=== PATIENT | female | born 1990 | race Caucasian/White ===

== ENCOUNTER 2016-09-04 15:39 | Emergency (ER) | payer MEDICAID ==
[2012-08-15 18:33] VITALS: BMI 43.6
[2016-09-04 16:23] LABS: BASOPHILS 0.1 % (0.0-2.0); EOSINOPHILS 1.2 % (0-7); HEMOGLOBIN 10.7 g/dL (12-16); IMMATURE GRANULOCYTES 0.3 % (0-5); MCH 29.1 pg (26.0-34.0); MCHC 32.4 g/dL (31.0-37.0); MCV 89.7 fL (80.0-100.0); MEAN PLATELET VOLUME 9.9 fL (7.4-10.4); MONOCYTES 5.7 % (2-11); NEUTROPHILS 75.7 % (40-80); PLATELET COUNT 174 10x3/uL (130-400); RBC 3.68 10x6/uL (4.00-5.40); RDW 13.9 % (11.5-14.5); WBC 7.7 10x3/uL (4.8-10.8)
== END 2016-09-04 18:11 | disposition home or self-care (01) ==
LOC: D.ER 15:39
PROVIDERS: Emergency Medicine
DX: O26.893 Other specified pregnancy related conditions, third trimester (principal); Z3A.33 33 weeks gestation of pregnancy; S40.012A Contusion of left shoulder, initial encounter; X58.XXXA Exposure to other specified factors, initial encounter; Y93.89 Activity, other specified; Y92.410 Unspecified street and highway as the place of occurrence of the external cause; E11.9 Type 2 diabetes mellitus without complications; E78.5 Hyperlipidemia, unspecified

== ENCOUNTER → 2016-09-14 12:09 | Outpatient (CLI) | payer MEDICAID ==
[2012-08-15 18:33] VITALS: BMI 43.6
== END | disposition home or self-care (01) ==
LOC: D.LDO 12:09
DX: O24.919 Unspecified diabetes mellitus in pregnancy, unspecified trimester (principal)

== ENCOUNTER → 2016-09-18 11:36 | Outpatient (CLI) | payer MEDICAID ==
[~2016-09-18 11:36] MED LIST: GLUCOPHAGE1000 MG PO; HYDROCODON-ACE1 EAC7 PO; JANUVIA100 MG PO; LEVEMIR100 U/M1 SQ; NOVOLOG100 U/M1 SC; PRENATAL COMPLE1 TAB PO
== END | disposition home or self-care (01) ==
LOC: D.LDO 11:36
DX: O24.913 Unspecified diabetes mellitus in pregnancy, third trimester (principal); Z3A.33 33 weeks gestation of pregnancy

== ENCOUNTER → 2016-09-21 10:17 | Outpatient (CLI) | payer MEDICAID ==
[2012-08-15 18:33] VITALS: BMI 43.6
== END | disposition home or self-care (01) ==
LOC: D.LDO 10:17
DX: O24.913 Unspecified diabetes mellitus in pregnancy, third trimester (principal); Z3A.33 33 weeks gestation of pregnancy

== ENCOUNTER → 2016-09-25 10:10 | Outpatient (CLI) | payer MEDICAID ==
[2012-08-15 18:33] VITALS: BMI 43.6
== END | disposition home or self-care (01) ==
LOC: D.LDO 10:10
DX: O24.913 Unspecified diabetes mellitus in pregnancy, third trimester (principal); Z3A.34 34 weeks gestation of pregnancy

== ENCOUNTER → 2016-09-28 10:10 | Outpatient (CLI) | payer MEDICAID ==
[2012-08-15 18:33] VITALS: BMI 43.6
== END | disposition home or self-care (01) ==
LOC: D.LDO 10:10
DX: O24.913 Unspecified diabetes mellitus in pregnancy, third trimester (principal); Z3A.34 34 weeks gestation of pregnancy

== ENCOUNTER → 2016-10-02 10:30 | Outpatient (CLI) | payer MEDICAID ==
[2012-08-15 18:33] VITALS: BMI 43.6
== END | disposition home or self-care (01) ==
LOC: D.ER 10:30
DX: O24.913 Unspecified diabetes mellitus in pregnancy, third trimester (principal); Z3A.35 35 weeks gestation of pregnancy

== ENCOUNTER → 2016-10-04 10:54 | Outpatient (CLI) | payer MEDICAID ==
[2012-08-15 18:33] VITALS: BMI 43.6
== END | disposition home or self-care (01) ==
LOC: D.LDO 10:54
DX: O24.913 Unspecified diabetes mellitus in pregnancy, third trimester (principal); Z3A.35 35 weeks gestation of pregnancy

== ENCOUNTER → 2016-10-09 10:05 | Outpatient (CLI) | payer MEDICAID ==
[2012-08-15 18:33] VITALS: BMI 43.6
== END | disposition home or self-care (01) ==
LOC: D.ER 10:05 → D.LDO 10:05
DX: O24.913 Unspecified diabetes mellitus in pregnancy, third trimester (principal); Z3A.36 36 weeks gestation of pregnancy

== ENCOUNTER → 2016-10-16 10:18 | Outpatient (CLI) | payer MEDICAID ==
[2012-08-15 18:33] VITALS: BMI 43.6
== END | disposition home or self-care (01) ==
LOC: D.ER 10:18
DX: O36.8130 Decreased fetal movements, third trimester, not applicable or unspecified (principal); Z3A.37 37 weeks gestation of pregnancy; O24.913 Unspecified diabetes mellitus in pregnancy, third trimester

== ENCOUNTER → 2016-10-20 10:11 | Outpatient (CLI) | payer MEDICAID ==
[2012-08-15 18:33] VITALS: BMI 43.6
== END | disposition home or self-care (01) ==
LOC: D.LDO 10:11
DX: O24.419 Gestational diabetes mellitus in pregnancy, unspecified control (principal); Z3A.37 37 weeks gestation of pregnancy

== ENCOUNTER → 2016-10-23 10:37 | Outpatient (CLI) | payer MEDICAID ==
[2012-08-15 18:33] VITALS: BMI 43.6
[~2016-10-23 10:37] MED LIST changes: -GLUCOPHAGE1000 MG PO; -HYDROCODON-ACE1 EAC7 PO; -JANUVIA100 MG PO
[2016-10-25 18:32] VITALS: BMI 38.1
== END | disposition home or self-care (01) ==
LOC: D.LDO 10:37
DX: O24.913 Unspecified diabetes mellitus in pregnancy, third trimester (principal); Z3A.38 38 weeks gestation of pregnancy

== ENCOUNTER 2016-10-25 13:40 | Inpatient (IN) | payer MEDICAID ==
[2016-10-25] VITALS (11 sets, daily range): BP systolic 95–117; BP diastolic 53–78; Ht 167.6 cm; Wt 107.0 kg
[~2016-10-25] VITALS: Ht 167.6 cm; Wt 107.0 kg
--- NOTE | ~2016-10-25 | OP ---
PATIENT NAME: BHUPINDER FARR MEDICAL RECORD: [id number] :90 LOCATION:[facility] D.1214 ADMISSION DATE:10/25/16 SURGEON: MIKEY BRADY MD DATE OF OPERATION: 10/25/2016 PREOPERATIVE DIAGNOSES: 1. Term intrauterine at 38 weeks and 5 days. 2. Class B gestational diabetes. 3. tachycardia. POSTOPERATIVE DIAGNOSES: 1. Term intrauterine at 38 weeks and 5 days. 2. Class B gestational diabetes. 3. tachycardia. PROCEDURE: Repeat low transverse section. SURGEON: Mikey Brady MD ESTIMATED BLOOD LOSS: 1000 cc. INTRAVENOUS FLUIDS: Per anesthesia record. SPECIMENS: Placenta and cord for gases. FINDINGS: 1. Viable infant, Apgars 9 at one and 9 at five. 2. Placenta delivered manually intact, 3-vessel cord noted. 3. Grossly normal adnexa bilaterally. DESCRIPTION OF PROCEDURE: The patient was taken to the operating room where spinal anesthesia was achieved without difficulty. The patient was then prepped and draped in normal sterile fashion in the dorsal supine position. SCDs were on and functioning normally and a Clark catheter had been placed and was draining freely. Following prep, a repeat Pfannenstiel skin incision was made with a scalpel and extended downward to the underlying subcutaneous fat to level of the fascia. This was then carefully excised in the midline until the rectus muscles were identified and the incision extended bilaterally using the Pascual scissors. The superior and inferior aspects of the fascial incision were then grasped with Page clamps times 2, tented upward, and sharply dissected from the underlying rectus muscle using the Bovie cautery and the Pascual scissors. The rectus muscles, which appeared plicated from the previous surgery, were then dissected using the Metzenbaum scissors. The peritoneum was then entered sharply at the superior aspect of the incision using the Metzenbaum scissors. Following intraperitoneal placement, the peritoneal incision was extended bilaterally using the Metzenbaum scissors. A bladder blade was then placed into the pelvis. A bladder flap was then created. A low transverse incision was then made and the final layers of the uterus entered bluntly using a finger. The uterine incision was extended superiorly and inferiorly using the Pelosi method. The was found to be occiput posterior and with the head extended. A vacuum was then placed on the occiput and correction to head flexion was performed followed by delivery of the vertex. The vacuum was then removed and the was delivered atraumatically. Infant was bulb suctioned upon delivery. Cord was clamped times 2, cut, and the infant was handed to the awaiting nursery team. Cord was then obtained for gases. The placenta was then OPERATIVE REPORT [id number] BHUPINDER FARR removed manually intact. A 3-vessel cord was noted. The uterus was exteriorized, cleared of all clots and debris. Transection of the right uterine artery was noted. It was clamped with a ring forcep. An upward left fracture was noted, which was then grasped with a ring forcep as well. The uterine incision was repaired with 0 Vicryl times 2 in a running locked fashion with good hemostasis noted. Posterior cul-de-sac was then thoroughly irrigated and the uterus replaced into the pelvis. The anterior cul-de-sac was irrigated and the uterine incision was found to be hemostatic. Counts were correct times 2. The fascia was repaired with 0 loop PDS times 1 and the skin repaired with amara. The patient tolerated the procedure well, transferred to postanesthesia recovery stable without incident. TRANSINT:[id number] Voice Confirmation ID: [id number] DOCUMENT ID: [id number] MIKEY BRADY MD CC: [id number] DICTATION DATE: 10/25/162048 DIRECTOR WOMEN: 10/26/16 0147 ADM IN [facility] [address] [place] [address]
[2016-10-25 14:10] LABS: HEMATOCRIT 36.6 % (36.0-48.0); MCH 28.6 pg (26.0-34.0); MCHC 32.8 g/dL (31.0-37.0); MCV 87.1 fL (80.0-100.0); MEAN PLATELET VOLUME 10.3 fL (7.4-10.4); RBC 4.2 10x6/uL (4.00-5.40); RDW 14.5 % (11.5-14.5); WBC 7.9 10x3/uL (4.8-10.8)
[2016-10-25] MEDS ORDERED: LEVEMIR100 U/M1 SQ (14:56)
[2016-10-25] MEDS ORDERED: NOVOLOG100 U/M1 SC (14:56)
[2016-10-25] MEDS ORDERED: PRENATAL COMPLE1 TAB PO (14:57)
--- NOTE | 2016-10-25 16:56 | NUR ---
RECEIVED PT FROM VIA BED TO ROOM 1214. BED LOCKED AND PLACED IN LOW POSITION. VSS. PT AWAKE. AAO X 3. FUNDUS FIRM AT U/U. RUBRA LOCHIA SMALL AMT. NO CLOTS EXPRESSED ON FUNDAL MASSAGE. ABDOMINAL DRESSING DRY WITHOUT DRAINAGE. PT STATES BLE CONTINUE NUMB. SCDS ON BLE. PUMP ON. PIV OF LR WITH PITOCIN 20 UNITS AT 125 ML/HR. SITE CLEAR TO LEFT HAND. PT DENIES NEEDS OR C/O. SR UPX 2. CALL LIGHT IN REACH.
--- NOTE | 2016-10-25 17:09 | NUR ---
NO POST OP ORDERS NOTED. DR POWELL NOTIFIED. NEW ORDERS RECEIVED.
--- NOTE | 2016-10-25 17:25 | NUR ---
DILAUDID COMMUNITY DEVELOPMENT TECHNICIAN STARTED. PATIENT INSTRUCTED ON USE AND TO NOTIFY STAFF RAINA IF ANY NAUSEA, ITCHING OR RASH. COMMUNITY DEVELOPMENT TECHNICIAN BUTTON AND CALL GARRETT WITHIN REACH. NO SIGNS OF COMPLICATIONS AT IV SITE. VAZQUEZ. SCANT LOCHIA RUBRA. ABRAMS PATENT WITH KOSTAS URINE QS. DENIES NAUSEA. RESP REG AND EVEN. REMAINS STABLE. FAMILY AT BEDSIDE. SCD'S CONT. LOWER ABD DSG REMAINS CDI WITH ICE BAG TO COVER.
--- NOTE | 2016-10-25 18:00 | NUR ---
REPORTS PAIN DIMINISHED SINCE PULLEY MAN STARTED. DENIES NAUSEA. ICE CHIPS GIVEN WITH INSTRUCTIONS TO WAIT 20 MIN AFTER FIRST ICE CHIP TO SEE IF NAUSEA A PROBLEM AND TO NOTIFY STAFF RAINA IF IT IS. REMAINS STABLE WITH NO SIGNS OF RESP DISTRESS OR OTHER DISTRESS NOTED OR REPORTED. UOP REMAINS ADEQUATE.
--- NOTE | 2016-10-25 19:25 | NUR ---
ASSESSMENT PER FLOW SHEET, VS CONTINUE, IV IN LEFT HAND NOTED TO BE SLIGHTLY WET, TUBING TIGHTENED AT HUB, RESECURED WITH NEW TEGADERM AND TAPE, DILAUDID LUNCH COOK TO DELIVER 0.2MG/10MINS PER PT'S DEMAND FOR PAIN, PT RATES INC PAIN 06/20, FF, ML, U/U, MOD BLEEDING NOTED ON PINK PAD, PT CLEANED UP WITH WET WARM WASH CLOTHS, PINK PAD, BLUE CHUX, AND LEOPOLDO PAD CHANGED, BIKINI INC WITH PRIMAPORE DRESSING CLEAN, DRY AND INTACT, FRESH ICE PACK TO ABD, ABRAMS CATH INTACT, DRAINING DARK YELLOW URINE, PT ENC TO DRINK PLENTY OF FLUIDS, FRESH H20 AND DIET LEMON TRIBE SODA SERVED, PT DENIES FLATUS, SCD'S ON AND WORKING PROPERLY, PT REQUESTED OC, INFORMED PT THAT I WILL SEE IF I CAN FIND SOME SUGAR FREE FOR HER, PT VERBALIZES UNDERSTANDING, PT DENIES FURTHER NEEDS, TRASH EMPTIED
--- NOTE | 2016-10-25 19:55 | NUR ---
PT VISITING WITH FAMILY, SUGAR FREE OC BARILLAS
[2016-10-25 20:04] LABS: BASOPHILS 0.1 % (0-2); EOSINOPHILS 0.1 % (0-7); HEMATOCRIT 32.2 % (36.0-48.0); HEMOGLOBIN 10.6 g/dL (12-16); IMMATURE GRANULOCYTES 0.3 % (0-5); LYMPHOCYTES 7.3 % (15-50); MCH 28.5 pg (26.0-34.0); MCHC 32.9 g/dL (31.0-37.0); MCV 86.6 fL (80.0-100.0); MEAN PLATELET VOLUME 10.3 fL (7.4-10.4); MONOCYTES 3.2 % (2-11); PLATELET COUNT 188 10x3/uL (130-400); RBC 3.72 10x6/uL (4.00-5.40); RDW 14.3 % (11.5-14.5)
[2016-10-25 20:06] LABS: WBC 10.9 10x3/uL (4.8-10.8)
--- NOTE | 2016-10-25 20:30 | NUR ---
PT VISITING WITH FAMILY AND FRIENDS, DENIES NEEDS AT THIS TIME
--- NOTE | 2016-10-25 21:11 | NUR ---
DR POWELL IN ROOM AT THIS TIME, PT TALKING TO HIM, NEW BAG OF NS WITH PITOCIN HUNG INFUSING VIA PUMP AT 125 ML/HR, PT DENIES NEEDS AT THIS TIME
--- NOTE | 2016-10-25 22:00 | NUR ---
PT FILLING OUT NSY PAPER WORK, VS FINISHED, PT RATS INC PAIN 06/20, DENIES NEEDS AT THIS TIME
[2016-10-26] VITALS (7 sets, daily range): BP systolic 103–118; BP diastolic 51–64
--- NOTE | 2016-10-26 00:07 | NUR ---
PT AWAKE, FOB HOLDING BABY, VS OBTAINED, FRESH ICE PACK TO ABD, BLUE CHUX CHANGED, LITE BLEEDING NOTED WITH NO CLOTS, LEOPOLDO PAD PLACED, ABRAMS CATH EMPTIED, FSBS OBTAINED, SERVED FRESH H20 TO PT, ICE PROVIDED TO FOB, PT DENIES FURTHER NEEDS, BABY TO NSY VIA OPEN CRIB CART PER NSY NURSE
--- NOTE | 2016-10-26 00:45 | NUR ---
BEDDING PROVIDED TO FOB
--- NOTE | 2016-10-26 02:01 | NUR ---
PT AWAKE, DENIES NEEDS AT THIS TIME, FOB ASLEEP IN RECLINER
--- NOTE | 2016-10-26 03:52 | NUR ---
ROUNDS MADE. V/S ASSESSED. PT LYING IN BED, HOB 45 DEGREES. PT DENIES ANY PAIN OR NEEDS AT THIS TIME. WILL CONT. TO MONITOR.
--- NOTE | 2016-10-26 04:37 | NUR ---
PT AWAKE, FSBS 149, LEOPOLDO CARE DONE WITH WET WARM WASH CLOTHS, LITE BLEEDING NOTED WITH NO CLOTS, BLUE CHUX AND LEOPOLDO PAD CHANGED, ABRAMS CATH EMPTIED, PUMPS CLEARED, FRESH ICE PACK TO ABD, PT REQUESTED AIR TO BE ADJ, REQUESTED AND SERVED DIET COLA, DENIES FURTHER NEEDS, FOB AT BEDSIDE
--- NOTE | 2016-10-26 04:51 | NUR ---
NEW BAG OF NS WITH PITOCIN HUNG IV INFUSING VIA PUMP AT 125 ML/HR
[2016-10-26 05:34] LABS: BASOPHILS 0.1 % (0-2); EOSINOPHILS 0.6 % (0-7); HEMATOCRIT 27.7 % (36.0-48.0); HEMOGLOBIN 9.1 g/dL (12-16); IMMATURE GRANULOCYTES 0.2 % (0-5); MCH 28.1 pg (26.0-34.0); MCHC 32.9 g/dL (31.0-37.0); MCV 85.5 fL (80.0-100.0); MEAN PLATELET VOLUME 10.2 fL (7.4-10.4); MONOCYTES 5.7 % (2-11); NEUTROPHILS 79.4 % (40-80); PLATELET COUNT 172 10x3/uL (130-400); RBC 3.24 10x6/uL (4.00-5.40); RDW 14.3 % (11.5-14.5); WBC 9.4 10x3/uL (4.8-10.8)
[2016-10-26 06:15] LABS: RAPID PLASMA REAGIN Non Reactive (Non Reactive)
--- NOTE | 2016-10-26 06:15 | NUR ---
PT AWAKE, SNACK BOX PROVIDED, PT CONTINUES TO RATE INC PAIN 1/10, DENIES NEEDS, FOB IN ROOM
--- NOTE | 2016-10-26 07:00 | NUR ---
SHIFT REPORT TO DAY SHIFT
--- NOTE | 2016-10-26 07:30 | NUR ---
PT SITTING UP IN BED HOLDING . ASSESSMENT DONE. CLEAR LIQ DIET SERVED. DENIES NEEDS.
--- NOTE | 2016-10-26 08:10 | NUR ---
DR POWELL HERE TO SEE PT- NEW ORDERS RECEIVED.
--- NOTE | 2016-10-26 11:08 | NUR ---
IV CHANGED TO SALINE LOCK. FLUSHED WITH NS.
--- NOTE | 2016-10-26 11:14 | NUR ---
IV CHANGED TO SALINE LOCK. ABRAMS CATH REMOVED POST BULB DEFLATED WITH 850CC URINE IN BAG.
--- NOTE | 2016-10-26 12:30 | NUR ---
UP TO BATHROOM- VOIDED 500CC URINE. MOD LOCHIA UPON STANDING- NO CLOTS. SHOWER DONE AND LINENS CHANGED. PT UP AND ABOUT IN ROOM. NO REQUESTS.
--- NOTE | 2016-10-26 13:17 | NUR ---
AMBULATING IN HALLWAY WITH FAMILY.
--- NOTE | 2016-10-26 14:49 | NUR ---
UP AND ABOUT IN ROOM. TALKING WITH FAMILY.
--- NOTE | 2016-10-26 15:30 | NUR ---
DR POWELL IN UNIT- INFORMED OF 1530 BS- NO NEW ORDERS.
--- NOTE | 2016-10-26 15:40 | NUR ---
sitting up in bedside chair. requesting pain medication. co pain incision area. rates pain a 7 on scale of 0-10.
--- NOTE | 2016-10-26 16:15 | NUR ---
AMBULATING IN HALLWAY. REFUSES DULCOLAX SUPP AT THIS TIME.
--- NOTE | 2016-10-26 16:41 | NUR ---
AMBULATING IN HALLWAY WITH VISITORS. STATES WILL DRINK SOME WARM TEA.
--- NOTE | 2016-10-26 16:43 | NUR ---
SITTING UP IN BEDSIDE CHAIR. DENIES PAIN AT THIS TIME.
--- NOTE | 2016-10-26 19:38 | NUR ---
PM ROUNDS MADE, PT GETTING READY TO FEED BABY, FSBS 150, INFORMED PT THAT I WILL COME BACK WHEN SHE IS FINISHED FEEDING BABY AND DO ASSESSMENT, PT VERBALIZES UNDERSTANDING, PT DENIES NEEDS OR PAIN AT THIS TIME, FAMILY AT BEDSIDE, TRASH REMOVED
--- NOTE | 2016-10-26 20:05 | NUR ---
ASSESSMENT PER FLOW SHEET, VS OBTAINED, SALINELOCK IN LEFT HAND INTACT WITH NO REDNESS OR EDEMA, FF, ML, U/1, PT REPORTS LITE-MOD BLEEDING WITH A FEW STRINGY BLOOD CLOTS, BIKINI INC WITH RAYSHAWN CDI WITH NO DRAINAGE NOTED, SLIGHT BRUSING AROUND INC, LEOPOLDO PAD OVER INC FOR COMFORT AND MOISTURE CONTROL, PT REPORTS FLATUS, NO BM AND VOIDING BY SELF WITH NO DIFFICULTY, PT DENIES NEEDS OR PAIN AT THIS TIME
--- NOTE | 2016-10-26 21:18 | NUR ---
PT HOLDING BABY, RATES INC PAIN 2-08/18, REFUSES PAIN MED AT THIS TIME, TALKED TO PT AGAIN ABOUT PAIN MED AND NOT WAITING UNTIL IT REALLY HURTS, PT VERBALIZES UNDERSTANDING, WILL LET ME KNOW WHEN SHE IS READY FOR IT, REQUESTED AND SERVED FRESH H20, DENIES FURTHER NEEDS
--- NOTE | 2016-10-26 22:30 | NUR ---
PT HOLDING BABY, READY FOR PAIN MED, ADM NORCO PO AND FLUSHED SALINE LOCK PER MD ORDERS, SEE EMAR, PT DENIES FURTHER NEEDS
--- NOTE | 2016-10-26 23:29 | NUR ---
PT AWAKE, FOB FEEDING BABY, VS OBTAINED, PT DENIES NEEDS OR PAIN AT THIS TIME
--- NOTE | 2016-10-27 00:09 | NUR ---
FOB DUMPING MACHINE OPERATOR LIGHT, REQUESTED AND PROVIDED BLANKETS, PT HOLDING BABY, DENIES FURTHER NEEDS
--- NOTE | 2016-10-27 01:00 | NUR ---
SHIFT REPORT TO DAY SHIFT
--- NOTE | 2016-10-27 02:27 | NUR ---
PT RESTING QUIETLY AT THIS TIME WITH EYES CLOSED. RESPIRATIONS EVEN, NON-LABROED. NO ACUTE DISTRESS NOTED AT THIS TIME. BED LOW. PHONE AND CALL LIGHT IN REACH. SRX2.
[2016-10-27 03:27] VITALS: BP 107/64
--- NOTE | 2016-10-27 03:28 | NUR ---
PT AAOX3 WATCHING TV AT THIS TIME. VSS. PT REQUESTS MEDICATION FOR PAIN 10/18 AT THIS TIME. ADMINISTERED NORCO AND MOTRIN PO PER ORDERS AT THIS TIME. PT DENIES OTHER NEEDS. BED LOW. PHONE AND CALL LIGHT IN REACH. SRX2.
--- NOTE | 2016-10-27 04:27 | NUR ---
WENT TO REASSESS PTS PAIN AT THIS TIME. PT IS RESTING QUIETLY AT THIS TIME WITH EYES CLOSED. RESPIRATIONS EVEN, NON-LABORED. NO ACUTE DISTRESS NOTED AT THIS TIME. BED LOW. PHONE AND CALL LIGHT IN REACH. SRX2.
--- NOTE | 2016-10-27 05:17 | NUR ---
PT RESTING QUIETLY AT THIS TIME WITH EYES CLOSED. RESPIRATIONS EVEN, NON-LABORED. NO ACUTE DISTRESS NOTED AT THIS TIME. BED LOW. PHONE AND CALL LIGHT IN REACH. SRX2.
--- NOTE | 2016-10-27 05:48 | NUR ---
PT RESTING QUIETLY AT THIS TIME WITH EYES CLOSED. AROUSED EASILY. PT FSBS 87 AT THIS TIME. PT DENIES NEEDS. BED LOW. PHONE AND CALL LIGHT IN REACH. SRX2.
[2016-10-27 07:40] VITALS: BP 110/60
--- NOTE | 2016-10-27 07:40 | NUR ---
RECEIVED IN CHAIR. ALERT. HOLDING BABY. PLACED BABY IN CRIB FOR ASSESS. FUND MIDLINE. FIRM. ABD SOFT. +BS X4 QUAD. WANTING D/C TODAY. AMBULATES ABOUT ROOM WITHOUT DIFFICULTY. NOTED SIG OTHER ASLEEP IN BED.
--- NOTE | 2016-10-27 10:15 | NUR ---
RECEIVED SITTING IN BED STATES THAT SHE HAS DECIDED TO GO HOME AND ASKS THAT I CONVEY THAT CHOICE TO DR. GAMING. PROVIDED ICE WATER. BED IN LOWEST POSITION, S/R UP X 2, CALL LIGHT WITHIN REACH. WILL CONTINUE TO MONITOR.
--- NOTE | 2016-10-27 12:46 | NUR ---
PT UP WALKING IN ROOM. . DENIES ANY PROBLEMS
--- NOTE | 2016-10-27 15:01 | NUR ---
D/C INSTRUCTIONS GIVEN AND EXPLAINED TO PT. RX X2 GIVEN TO PT. COPIES IN CHART. INFO SHEETS GIVEN ABOUT MEDS. APPT MADE WITH DR POWELL FOR 11/01/16 AT 11:30 FOR STAPLE REMOVAL.
--- NOTE | 2016-10-27 15:30 | NUR ---
PT WAITING ON RIDE TO COME FOR HER WITH HER CAR SEAT FOR BABY
--- NOTE | 2016-10-27 16:05 | NUR ---
TO CAR VIA W/C. WITH BABY AND SIG OTHER.
== END 2016-10-27 16:05 | disposition home or self-care (01) | DRG 766 ==
LOC: D.WS 13:40 → D.LD 13:40 → D.WS 15:48
PROVIDERS: ADMIT Obstetrics & Gynecology
PROC: 10D00Z1 Extraction of Products of Conception, Low, Open Approach (ICD-10-PCS; principal; 2016-10-25 14:00)
DX: O24.429 Gestational diabetes mellitus in childbirth, unspecified control (principal); Z3A.38 38 weeks gestation of pregnancy; Z37.0 Single live birth; O76 Abnormality in fetal heart rate and rhythm complicating labor and delivery

== ENCOUNTER → 2017-02-08 09:08 | Outpatient (CLI) | payer MEDICAID ==
[2016-10-25 18:32] VITALS: BMI 38.1
== END | disposition home or self-care (01) ==
LOC: D.US 09:08
DX: R10.11 Right upper quadrant pain (principal)

== ENCOUNTER 2017-02-19 09:15 | Inpatient (IN) | payer MEDICAID ==
[~2017-02-19] VITALS: Ht 167.6 cm; Wt 92.5 kg
[2017-02-19 10:16] LABS: BASOPHILS 0.1 % (0-2); EOSINOPHILS 0.4 % (0-7); HEMATOCRIT 38.6 % (36.0-48.0); HEMOGLOBIN 12.4 g/dL (12-16); IMMATURE GRANULOCYTES 0.1 % (0-5); LYMPHOCYTES 9.4 % (15-50); MCHC 32.1 g/dL (31.0-37.0); MCV 84.1 fL (80.0-100.0); MEAN PLATELET VOLUME 10.2 fL (7.4-10.4); MONOCYTES 5.8 % (2-11); NEUTROPHILS 84.2 % (40-80); PLATELET COUNT 187 10x3/uL (130-400); RBC 4.59 10x6/uL (4.00-5.40); RDW 14.7 % (11.5-14.5); WBC 6.8 10x3/uL (4.8-10.8)
[2017-02-19 10:36] LABS: ALBUMIN 3.6 g/dL (3.4-5.0); ALKALINE PHOSPHATASE 120 U/L (46-116); ALT (SGPT) 150 U/L (10-68); CALC OSMOLALITY 286 mosm/kg (275-300); CALCIUM 9.2 mg/dL (8.5-10.1); CARBON DIOXIDE 26.3 mmol/L (21.0-32.0); CHLORIDE - SERUM 107 mmol/L (98-107); CREATININE - SERUM 0.7 mg/dL (0.6-1.3); GLUCOSE 145 mg/dL (74-106); POTASSIUM - SERUM 4.3 mmol/L (3.5-5.1); PROTEIN - SERUM 6.7 g/dL (6.4-8.2); SODIUM 141 mmol/L (136-145); UREA NITROGEN 20 mg/dL (7-18); eGFR NON AFRICAN AMERICAN > 90 mL/min (90-120)
[2017-02-19 10:36] LABS: APPEARANCE CLEAR (CLEAR); BILIRUBIN NEGATIVE (NEGATIVE); COLOR YELLOW (YELLOW); GLUCOSE NEGATIVE (NEGATIVE); KETONE NEGATIVE (NEGATIVE); LEUKOCYTE ESTERASE TRACE (NEGATIVE); NITRITE NEGATIVE (NEGATIVE); PROTEIN NEGATIVE (NEGATIVE); UROBILINOGEN NORMAL (NORMAL)
[2017-02-19 10:37] LABS: BACTERIA FEW /hpf (NONE SEEN); EPITHELIAL CELLS OCC /hpf (0-5); WHITE CELLS - URINE 0-5 /hpf (0-5)
[2017-02-19 10:47] LABS: LIPASE 5540 U/L (73-393)
[2017-02-19 10:49] LABS: AMYLASE - SERUM 366 U/L (25-115)
[2017-02-19 11:44] LABS: HCG SERUM NEGATIVE (NEGATIVE)
[2017-02-19] MEDS ORDERED: GLUCOPHAGE1000 MG PO (12:35)
[2017-02-19] MEDS ORDERED: JANUVIA100 MG PO (12:36)
--- NOTE | 2017-02-19 13:00 | NUR ---
RECEIVED TO FLOOR FROM ER, ORIENTED TO ROOM, DENIES NEEDS, BED LOWEST POSITION CALL LIGHT IN REACH, WILL CONTINUE TO MONITOR
[2017-02-19 13:49] VITALS: BP 106/55; Ht 167.6 cm; Wt 92.5 kg
--- NOTE | 2017-02-19 19:30 | NUR ---
RECIEVED SHIFT REPORT. PT IS LYING IN BED. ALERT AND ORIENTED AND ABLE TO VERBALIZE NEEDS. IV IS PATENT AND FLUIDS ARE RUNNING PER ORDER. PT IS AMBULATORY BUT WAS INSTRUCTED TO CALL FOR ANY ASSISTANCE NEEDED. PT DENIES ANY PAIN AT THIS TIME WITH CODING CLERKS SUPERVISOR PUMP. NO NEEDS ARE VERBALIZED AT THIS TIME. WILL CONTINUE TO MONITOR. SIDE RAILS ARE UP X 2. BED IS IN LOWEST POSITION. CALL LIGHT IS WITHIN REACH.
[2017-02-19 20:00] VITALS: BP 111/63
--- NOTE | 2017-02-19 20:33 | NUR ---
SHIFT ASSESSMENT COMPLETED. ANTIBIOTIC HUNG PER ORDER. PT RECIEVED NO INSULIN PER SLIDING SCALE FOR FSBS=79. NO NEEDS ARE VOICED. WILL MONITOR. SIDE RAILS X 2. BED LOW. CALL LIGHT IN REACH.
[2017-02-20] VITALS: BP 107/54
[2017-02-20 04:00] VITALS: BP 110/60
[2017-02-20 05:13] LABS: BASOPHILS 0.3 % (0-2); EOSINOPHILS 2.2 % (0-7); HEMATOCRIT 35.2 % (36.0-48.0); HEMOGLOBIN 11.3 g/dL (12-16); IMMATURE GRANULOCYTES 0.2 % (0-5); LYMPHOCYTES 17.8 % (15-50); MCHC 32.1 g/dL (31.0-37.0); MCV 84.2 fL (80.0-100.0); MEAN PLATELET VOLUME 10.7 fL (7.4-10.4); MONOCYTES 7.8 % (2-11); NEUTROPHILS 71.7 % (40-80); PLATELET COUNT 183 10x3/uL (130-400); RBC 4.18 10x6/uL (4.00-5.40); RDW 14.9 % (11.5-14.5); WBC 5.8 10x3/uL (4.8-10.8)
[2017-02-20 05:30] LABS: ALBUMIN 2.8 g/dL (3.4-5.0); ALKALINE PHOSPHATASE 112 U/L (46-116); ALT (SGPT) 264 U/L (10-68); AMYLASE - SERUM 176 U/L (25-115); BILIRUBIN - DIRECT 0.09 mg/dL (0.00-0.30); BILIRUBIN - INDIRECT 0.31 mg/dL (0.00-1.00); CALC OSMOLALITY 280 mosm/kg (275-300); CALCIUM 7.9 mg/dL (8.5-10.1); CARBON DIOXIDE 28.6 mmol/L (21.0-32.0); CHLORIDE - SERUM 106 mmol/L (98-107); CREATININE - SERUM 0.9 mg/dL (0.6-1.3); GLUCOSE 113 mg/dL (74-106); LIPASE 466 U/L (73-393); POTASSIUM - SERUM 3.3 mmol/L (3.5-5.1); PROTEIN - SERUM 5.7 g/dL (6.4-8.2); SODIUM 141 mmol/L (136-145); UREA NITROGEN 9 mg/dL (7-18); eGFR NON AFRICAN AMERICAN 80 mL/min (90-120)
--- NOTE | 2017-02-20 07:45 | NUR ---
ASSESSMENT PER FLOW SHEET.PT WITHOUT DISTRESS.CALL LIGHT IN REACH
[2017-02-20 08:21] VITALS: BP 153/72
[2017-02-20 11:58] VITALS: BP 118/74
--- NOTE | 2017-02-20 18:40 | NUR ---
TOLERATING FULL LIQUID DIET WITHOUT EMESIS.PT STATES SHE THINKS PAIN MED IS GIVING HER A HEADACHE AND FEELING SOME NAUSEA. SHE IS WITHOUT CHANGE FROM INITIAL SHIFT ASSESSMENT.CONT PLAN OF CARE
[2017-02-20 18:52] LABS: HCG SERUM NEGATIVE (NEGATIVE)
--- NOTE | 2017-02-20 19:35 | NUR ---
RECIEVED SHIFT REPORT. PT IS LYING IN BED. ALERT AND ORIENTED AND ABLE TO VERBALIZE NEEDS. IV IS PATENT AND FLUIDS ARE RUNNING PER ORDER. PT IS AMBULATORY BUT WAS INSTRUCTED TO CALL FOR ANY ASSISTANCE NEEDED. PT DENIES ANY PAIN AT THIS TIME WITH RADAR MECHANIC PUMP. NO NEEDS ARE VERBALIZED AT THIS TIME. WILL CONTINUE TO MONITOR. SIDE RAILS ARE UP X 2. BED IS IN LOWEST POSITION. CALL LIGHT IS WITHIN REACH.
[2017-02-20 20:00] VITALS: BP 121/64
--- NOTE | 2017-02-20 20:31 | NUR ---
SHIFT ASSESSMENT COMPLETED. ANTIBIOTIC HUNG PER ORDER. NO NEEDS VOICED. WILL MONITOR. SIDE RAILS X 2. BED LOW. CALL LIGHT IN REACH.
[2017-02-21 04:00] VITALS: BP 120/81
[2017-02-21 05:15] LABS: BASOPHILS 0.3 % (0-2); EOSINOPHILS 2.1 % (0-7); HEMATOCRIT 35.4 % (36.0-48.0); HEMOGLOBIN 11.4 g/dL (12-16); IMMATURE GRANULOCYTES 0.3 % (0-5); LYMPHOCYTES 21.9 % (15-50); MCHC 32.2 g/dL (31.0-37.0); MCV 83.9 fL (80.0-100.0); MEAN PLATELET VOLUME 10.6 fL (7.4-10.4); MONOCYTES 6.2 % (2-11); NEUTROPHILS 69.2 % (40-80); PLATELET COUNT 176 10x3/uL (130-400); RBC 4.22 10x6/uL (4.00-5.40); RDW 14.8 % (11.5-14.5); WBC 5.8 10x3/uL (4.8-10.8)
[2017-02-21 05:48] LABS: ALKALINE PHOSPHATASE 101 U/L (46-116); ALT (SGPT) 164 U/L (10-68); AMYLASE - SERUM 74 U/L (25-115); BILIRUBIN - DIRECT 0.06 mg/dL (0.00-0.30); BILIRUBIN - INDIRECT 0.24 mg/dL (0.00-1.00); CALC OSMOLALITY 277 mosm/kg (275-300); CALCIUM 8.6 mg/dL (8.5-10.1); CARBON DIOXIDE 24.5 mmol/L (21.0-32.0); CHLORIDE - SERUM 108 mmol/L (98-107); CREATININE - SERUM 0.6 mg/dL (0.6-1.3); GLUCOSE 116 mg/dL (74-106); LIPASE 188 U/L (73-393); POTASSIUM - SERUM 3.6 mmol/L (3.5-5.1); SODIUM 140 mmol/L (136-145); UREA NITROGEN 6 mg/dL (7-18); eGFR NON AFRICAN AMERICAN > 90 mL/min (90-120)
--- NOTE | 2017-02-21 07:45 | NUR ---
ASSESSMENT PER FLOW SHEET.PT REMAINS WITHOUT NAUSEA AND DENIES PAIN AT PRESENT.NPO FOR SURGERY TODAY.CALL LIGHT IN REACH
[2017-02-21 08:18] VITALS: BP 124/70
--- NOTE | 2017-02-21 10:34 | NUR ---
Patient Name: BHUPINDER FARR Admission Status: ER Accout number: [id number] Admission Date: 02-19-2017 : 1990 Admission Diagnosis: Attending: NOEL KEYS Current LOS: 2 Anticipated DC Date: Planned Disposition: Home Primary Insurance: [employer] Discharge Planning Comments: CM met with patient to assess discharge planning needs. Patient lives independently at home with her mother (Olivia) who will be the one to drive her home at time of discharge. She denies any HH or medical equipment needs at this time. CM will continue to follow and assist. PCP: Nay[facility] [address] [place] (Mother) [phone] Parts Analyst: Tamiko Estrada * Is the patient Alert and Oriented? Yes 0 * How many steps to enter\exit or inside your home? 0 0 * PCP NAYELI 0 * Pharmacy [facility] 0 * Preadmission Environment Home with Family 0 * ADLs Independent 0 * Equipment None 0 * List name and contact numbers for known caregivers / representatives who currently or will assist patient after discharge: OLIVIA LIM (MOTHER) 0 * Community resources currently utilized None 0 * Additional services required to return to the preadmission environment? No 0 * Can the patient safely return to the preadmission environment? Yes 0 * Has this patient been hospitalized within the prior 30 days at any hospital? No 0 Grand Total: 0
--- NOTE | 2017-02-21 10:43 | NUR ---
PRE MEDS ORDERED
--- NOTE | 2017-02-21 10:56 | NUR ---
FSBS 104 PER PT REQUEST. LEFT UNIT VIA BED
[2017-02-21] MEDS ORDERED: HYDROCODON-ACE1 EAC7 PO (12:47)
[2017-02-21 13:28] VITALS: BP 121/68
--- NOTE | 2017-02-21 13:34 | NUR ---
BACK FROM PACU VIA BED.ABD SITES X4 CLEAN DRY AND INTACT.MATTHEW GLEZ
--- NOTE | 2017-02-21 14:21 | NUR ---
ASSESSED PT SP02 CURRENTLY 97% ON RA.....
--- NOTE | 2017-02-21 14:55 | NUR ---
CALL FROM DAUGHTER. PASSWORD CONFIRMED.STATUS ON PT GIVEN TO FAMILY
--- NOTE | 2017-02-21 15:50 | NUR ---
TOLERATING FULL LIQUID DIET,WITHOUT EMESIS.STILL DENIES PAIN.LAP SITES X3 CDI. UMBILICAL SITE HAS SOME BLOODY DRAINAGE,VSS. PT HAS VOIDED 500CC OF URINE,IV DCD WITH CATH INTACT.DISCHARGE INSTRUCTIONS,STATES UNDERSTANDING.
--- NOTE | 2017-02-21 15:56 | NUR ---
LEFT UNIT VIA WHEELCHAIR.FAMILY AT SIDE.
--- NOTE | 2017-02-22 08:32 | OP ---
PATIENT NAME: BHUPINDER FARR MEDICAL RECORD: [id number] :90 LOCATION:[id number] ADMISSION DATE:02/19/17 SURGEON: NOEL KEYS MD DATE OF OPERATION: 02/21/2017 SURGEON: Noel Keys MD. PREOPERATIVE DIAGNOSIS: Gallstone pancreatitis. POSTOPERATIVE DIAGNOSIS: Gallstone pancreatitis. PROCEDURE PERFORMED: Laparoscopic cholecystectomy. ANESTHESIA: General. COMPLICATIONS: None. SPECIMENS: Gallbladder. Case is clean contaminated. ESTIMATED BLOOD LOSS: 20 cc. OPERATIVE COURSE: After consent was obtained, the patient was taken to the operating room and placed in supine position on the operating table. Next, general anesthesia was given via endotracheal intubation after a timeout was performed to confirm the correct patient and procedure. The abdomen was prepped and draped in typical sterile fashion. Local anesthetic was injected just above the umbilicus. A stab incision was made with an 11-blade scalpel. Using a 5-mm bladeless optical trocar, the abdomen was entered under direct laparoscopic vision. Adequate pneumoperitoneum was achieved. The abdominal cavity was inspected. No evidence of bowel injury. No evidence of bleeding. The patient was placed in the steep reverse Trendelenburg position. At this time, all remaining trocars were placed after the administration of local anesthetic, two 5-mm trocars in the right upper quadrant and 11-mm trocar in the subxiphoid position. The fundus of the gallbladder was grasped and retracted cephalad. The infundibulum was grasped and retracted laterally. The peritoneum was incised using electrocautery. Blunt dissection was then performed with a [place] dissector until the critical view was obtained; cystic duct lateral, cystic artery medial, liver in the posterior window. Three clips were placed in the proximal cystic duct, 1 clip distal and 2 clips were placed in the proximal cystic artery. The duct and artery were then transected with laparoscopic Metzenbaum scissors. The remaining portion of the gallbladder was then dissected off the liver bed using electrocautery. Once complete, it was grasped with the tenaculum and removed through the 11-mm trocar and sent for permanent pathology. The operative site was then copiously irrigated and suctioned. Careful attention was paid to hemostasis, which was obtained in the liver bed using electrocautery. The abdominal cavity was copiously irrigated and suctioned. The abdominal cavity was inspected. No evidence of bowel injury. No evidence of bleeding. There were [address] in the cystic duct, [address] in the cystic artery. At this time, all remaining instruments were removed. The abdomen was desufflated. Trocars were removed. Skin was closed with 4-0 Monocryl, Mastisol and Steri-Strips. At the end of the case, all needle and instrument counts were correct. No complications occurred. The patient was extubated and transferred to the PACU in stable condition. OPERATIVE REPORT [id number] BHUPINDER FARR TRANSINT:[id number] Voice Confirmation ID: [id number] DOCUMENT ID: [id number] NOEL KEYS MD at 0832 CC: [id number] DICTATION DATE: 02/21/17 1244 TRIAL JUDGE: 02/21/17 1758 DIS IN 02/21/17 [facility] [address] [place] [address]
== END 2017-02-21 15:56 | disposition home or self-care (01) | DRG 419 ==
LOC: D.ER 09:15 → D.MS 11:51
PROVIDERS: Emergency Medicine; ADMIT Surgery
PROC: 0FT44ZZ Resection of Gallbladder, Percutaneous Endoscopic Approach (ICD-10-PCS; principal; 2017-02-21 12:00)
DX: K85.10 Biliary acute pancreatitis without necrosis or infection (principal); E11.9 Type 2 diabetes mellitus without complications; Z79.4 Long term (current) use of insulin

== ENCOUNTER 2017-03-11 05:44 | Emergency (ER) | payer MEDICAID ==
[2017-02-19 13:49] VITALS: BMI 33.0
[~2017-03-11 05:44] MED LIST changes: +GLUCOPHAGE1000 MG PO; +HYDROCODON-ACE1 EAC7 PO; +JANUVIA100 MG PO
[2017-03-11 06:24] LABS: APPEARANCE CLEAR (CLEAR); BILIRUBIN NEGATIVE (NEGATIVE); COLOR YELLOW (YELLOW); GLUCOSE NEGATIVE (NEGATIVE); KETONE NEGATIVE (NEGATIVE); NITRITE NEGATIVE (NEGATIVE); PROTEIN NEGATIVE (NEGATIVE); SPECIFIC GRAVITY 1.025 (1.005-1.020); UROBILINOGEN NORMAL (NORMAL)
[2017-03-11 06:26] LABS: HCG URINE NEGATIVE (NEGATIVE)
[2017-03-11 07:12] LABS: BASOPHILS 0.1 % (0-2); EOSINOPHILS 0.9 % (0-7); HEMATOCRIT 36.9 % (36.0-48.0); IMMATURE GRANULOCYTES 0.1 % (0-5); LYMPHOCYTES 13.9 % (15-50); MCH 27.3 pg (26.0-34.0); MCHC 32.5 g/dL (31.0-37.0); MCV 83.9 fL (80.0-100.0); MEAN PLATELET VOLUME 10.4 fL (7.4-10.4); MONOCYTES 4.5 % (2-11); NEUTROPHILS 80.5 % (40-80); PLATELET COUNT 203 10x3/uL (130-400); WBC 8.8 10x3/uL (4.8-10.8)
[2017-03-11 07:26] LABS: ALBUMIN 3.4 g/dL (3.4-5.0); ALKALINE PHOSPHATASE 115 U/L (46-116); ALT (SGPT) 45 U/L (10-68); AMYLASE - SERUM 59 U/L (25-115); BILIRUBIN - TOTAL 0.81 mg/dL (0.2-1.3); CALC OSMOLALITY 279 mosm/kg (275-300); CALCIUM 9.3 mg/dL (8.5-10.1); CARBON DIOXIDE 28.5 mmol/L (21.0-32.0); CHLORIDE - SERUM 102 mmol/L (98-107); CREATININE - SERUM 0.7 mg/dL (0.6-1.3); GLUCOSE 129 mg/dL (74-106); LIPASE 129 U/L (73-393); POTASSIUM - SERUM 3.4 mmol/L (3.5-5.1); PROTEIN - SERUM 6.8 g/dL (6.4-8.2); SODIUM 139 mmol/L (136-145); UREA NITROGEN 13 mg/dL (7-18); eGFR NON AFRICAN AMERICAN > 90 mL/min (90-120)
== END 2017-03-11 08:04 | disposition home or self-care (01) ==
LOC: D.ER 05:44
PROVIDERS: Family Medicine
DX: K29.00 Acute gastritis without bleeding (principal)

== ENCOUNTER → 2019-07-04 09:44 | Outpatient (CLI) | payer SELFPAY ==
[2017-02-19 13:49] VITALS: BMI 33.0
[~2019-07-04 09:44] MED LIST changes: +NOVOLOG100 UNIT/1 SC; +TAMIFLU75 MG PO
[2019-07-04 17:54] LABS: APPEARANCE CLEAR (CLEAR); COLOR YELLOW (YELLOW); GLUCOSE NEGATIVE (NEGATIVE); NITRITE NEGATIVE (NEGATIVE); PROTEIN NEGATIVE (NEGATIVE)
[2019-07-04 17:59] LABS: BILIRUBIN NEGATIVE (NEGATIVE); KETONE LARGE mg/dL (NEGATIVE); UROBILINOGEN NORMAL (NORMAL)
== END | disposition home or self-care (01) ==
LOC: D.LDO 09:44
PROVIDERS: ATTEND Student in an Organized Health Care Education/Training Program
DX: O24.419 Gestational diabetes mellitus in pregnancy, unspecified control (principal)

== ENCOUNTER 2019-07-10 20:01 | Emergency (ER) | payer MEDICAID ==
[~2019-07-10] VITALS: Ht 167.6 cm; Wt 102.3 kg
[~2019-07-10 20:01] MED LIST changes: -NOVOLOG100 UNIT/1 SC; -TAMIFLU75 MG PO
[2019-07-10 20:11] VITALS: Ht 167.6 cm; Wt 102.3 kg
[2019-07-10] MEDS ORDERED: NOVOLOG100 UNIT/1 SC (20:13)
[2019-07-10] MEDS ORDERED: TAMIFLU75 MG PO ×3 (21:22→21:26)
[2019-07-10 21:35] VITALS: BP 115/66
== END 2019-07-10 21:35 | disposition home or self-care (01) ==
LOC: D.ER 20:01
DX: O26.893 Other specified pregnancy related conditions, third trimester (principal); Z3A.33 33 weeks gestation of pregnancy; J11.1 Influenza due to unidentified influenza virus with other respiratory manifestations; E11.9 Type 2 diabetes mellitus without complications; Z79.84 Long term (current) use of oral hypoglycemic drugs

== ENCOUNTER → 2019-07-31 12:18 | Outpatient (CLI) | payer MEDICAID ==
[2019-07-10 20:11] VITALS: BMI 36.4
[~2019-07-31 12:18] MED LIST changes: +LEVEMIR IN100 UNITS/ SC; +NOVOLOG100 UNIT/1 SC; +TAMIFLU75 MG PO
== END | disposition home or self-care (01) ==
LOC: D.LDO 12:18
PROVIDERS: ATTEND Student in an Organized Health Care Education/Training Program
DX: O36.8130 Decreased fetal movements, third trimester, not applicable or unspecified (principal); Z3A.36 36 weeks gestation of pregnancy

== ENCOUNTER 2019-08-05 10:31 | Inpatient (IN) | payer MEDICAID ==
[2019-08-05] VITALS (15 sets, daily range): BP systolic 111–150; BP diastolic 50–73; Ht 167.6 cm; Wt 105.2 kg
[~2019-08-05] VITALS: Ht 167.6 cm; Wt 105.2 kg
--- NOTE | ~2019-08-05 | OP ---
PATIENT NAME: BHUPINDER FARR MEDICAL RECORD: [id number] :90 LOCATION:[id number] ADMISSION DATE:08/05/19 SURGEON: SHIKHA ALMEIDA DO DATE OF OPERATION: 08/05/2019 PREOPERATIVE DIAGNOSIS: Nonreassuring heart tracing, antepartum testing. POSTOPERATIVE DIAGNOSIS: Nonreassuring heart tracing, antepartum testing. PRIMARY SURGEON: Shikha Almeida DO ANESTHESIA: General ET tube. PROCEDURE: Repeat low transverse section via Pfannenstiel incision. FINDINGS: Normal-appearing uterus, bilateral fallopian tubes, bilateral ovaries. Male infant, weight 8 pounds 10 ounces, Apgars 2, 7 and 9, normal appearing placenta, cord. SPECIMENS: Placenta and cord. ESTIMATED BLOOD LOSS: 900 cc. IV FLUIDS: 1500 cc. URINE OUTPUT: 60 cc clear urine. COMPLICATIONS: None. CONDITION: Stable. PROCEDURE: The risks, benefits, alternatives and indications of the procedure were discussed with the patient. She voices understanding of the procedure and signed the consent. She was taken to the OR where due to the emergent nature of the section, general anesthesia was administered and found to be adequate. She was placed in the dorsal supine position with a leftward tilt. The patient was prepped and draped in the normal sterile fashion prior to administration of anesthesia. General anesthesia was then administered and found to be adequate. Pfannenstiel skin incision was made with a scalpel and carried down to the underlying layer of the fascia. The fascia was incised in the midline and extended laterally. The fascia was bluntly dissected off the rectus muscle superiorly and inferiorly. The rectus muscle was in the midline down to the level peritoneum. The peritoneum was identified and noted to be free of adherent bowel and entered bluntly. The peritoneum was further with gentle traction. The bladder blade was inserted. The uterus was incised in a transverse fashion in the lower uterine segment. The incision was extended with cephalad caudad traction. The infant's head was brought to the incision. The delivered without difficulty. Mouth and nose were suctioned. Cord was clamped and cut and the infant was handed off to awaiting pediatricians. The placenta was manually removed. The uterus was exteriorized and a moist lap was used to assure complete removal of placental membranes, unclear whether placental abruption occurred. There was no blood inside the uterus; however, the placenta was removed fairly easily. Moist laparotomy sponges to assure complete removal of blood clot of placental membranes. The hysterotomy was closed with 0 Vicryl in a running locked fashion with good OPERATIVE REPORT [id number] BHUPINDER FARR hemostasis noted. The posterior cul-de-sac was irrigated with warm sterile saline and the uterus, tubes and ovaries were returned back to the abdominal cavity. A moist laparotomy sponge was used to assure complete removal of blood clots and fluid from the abdominal cavity. The hysterotomy was reinspected and noted to be hemostatic. The rectus muscle was closed with 2-0 Monocryl in a running fashion with good hemostasis. The fascial incision was closed with 0 Vicryl in a running fashion with good hemostasis. The skin was closed in a subcuticular fashion with 3-0 Monocryl and Dermabond covering. All needle, lap, sponge, and instrument counts were correct times 2. The patient tolerated the procedure well and she was awakened and taken to the recovery room in stable condition. TRANSINT:[id number] Voice Confirmation ID: [id number] DOCUMENT ID: [id number] SHIKHA ALMEIDA DO CC: [id number] DICTATION DATE: 08/05/19 1616 GIS DEVELOPER: 08/06/19 031 ADM IN [facility] [address] [place] [address]
[2019-08-05 11:02] LABS: HEMATOCRIT 39.4 % (36.0-48.0); HEMOGLOBIN 12.7 g/dL (12-16); MCH 27.6 pg (26.0-34.0); MCHC 32.2 g/dL (31.0-37.0); MCV 85.7 fL (80.0-100.0); MEAN PLATELET VOLUME 11.1 fL (7.4-10.4); RBC 4.6 10x6/uL (4.00-5.40); RDW 14.8 % (11.5-14.5); WBC 10.4 10x3/uL (4.8-10.8)
--- NOTE | 2019-08-05 12:00 | NUR ---
BABY BORN AT 1123
--- NOTE | 2019-08-05 13:01 | NUR ---
FUNDUS IS MIDLINE FIRM 2U. LEOPOLDO PAD IN PLACE. NO CLOTS PRESENTS. SCANT RUBRA LOCHIA NOTED ON PAD. WILL CONTINUE TO MONITOR.
--- NOTE | 2019-08-05 13:15 | NUR ---
REC'D BACK TO ROOM 1274 FROM PACU FOR CONTINUED PP CARE. AA&O X4. VSS. DENIES PAIN AT THIS TIME. VSS. ADMISSION ASSESSMENT COMPLETED AT THIS TIME PER FLOWSHEET. BREATH SOUNDS CLEAR AND EQUAL BILATERALLY, REGULAR AND UNLABORED, NO S/S OF DISTRESS NOTED. BOWEL SOUNDS PRESENT AND HYPOACTIVE X4. DRSG TO LOWER TRANSVERSE ABD INCISION NOTED WITH AREAS OF DRAINAGE MARKED. FUNDUS FIRM, MIDLINE AND U2 WITH SMALL AMT RUBRA LOCHIA, NO CLOTS NOTED. POC DISCUSSED WITH PT. PT STATES THAT SHE DOES NOT WANT IV PAIN MEDS AT THIS TIME AND WOULD RATHER HAVE PO, WILL NOTIFY DR. ALMEIDA. POSITIONED UP IN BED.. BED IN LOW POSITION WITH SRUP X2. CALL LIGHT AND PHONE WITHIN REACH.
--- NOTE | 2019-08-05 13:34 | NUR ---
VSS/ FUNUDUS REMAINS FIRM MIDLINE AND U2 WITH SCANT RUBRA LOCHIA, NO CLOTS NOTED. PAIN 2-3/10, DENIES NEED FOR INTERVENTION AT THIS TIME. INSTRUCTED ON INCENTIVE SPIROMETER USE WITH RETURN DEMONSTRATION NOTED X5. COUGH AND DEEP BREATHING DONE WITH GOOD EFFORT. BED IN LOW POSITION WITH SRUP X2. CALL LIGHT AND PHONE WITHIN REACH. RN REMAINS AT BEDSIDE TO PERFORM ADMISSION ASSESSMENT.
[2019-08-05] MEDS ORDERED: LEVEMIR FL100 UNIT/1 SC (13:37)
[2019-08-05] MEDS ORDERED: PRENAVITE1 TAB PO (13:38)
--- NOTE | 2019-08-05 13:47 | NUR ---
DR. GREEN TO BEDSIDE, DISCUSSING INFANTS POC AND PLANS FOR TRANSFER TO [facility] WITH PT AND FAMILY. ANSWERING QUESTIONS OF PT. PT TEARFUL AT THIS TIME. COOL WASH CLOTH PROVIDED. FAMILY MEMBERS AND FOB AT BEDSIDE, SUPPORTIVE AND ATTENTIVE TO PT.
--- NOTE | 2019-08-05 14:23 | NUR ---
SPOKE WITH DR. ALMEIDA REGARDING PT EXPRESSING THAT SHE REALLY DOESN'T WANT TO TAKE IV PAIN MEDS AT THIS TIME. ORDERS REC'D.
--- NOTE | 2019-08-05 14:45 | NUR ---
PT UPDATED ON NEW PAIN MED ORDERS REC'D, VERBALIZES UNDERSTANDING. STATES THAT SHE WOULD LIKE DYE WORKER AT THIS TIME "JUST IN CASE." MORPHINE DYE WORKER SET UP. PT INSTRUCTED ON USE AND VERBALIZES UNDERSTANDING. COUGH AND DEEP BREATHING DONE WITH GOOD EFFORT. INCENTIVE SPIROMETER DONE X5 WITH GOOD EFFORT. 250 MLS CLEAR LIGHT YELLOW URINE EMPTIED FROM ABRAMS. VSS. FUNDUS FIRIM, MIDLINE AND U2 WITH SMALL RUBRA LOCHIA, NO CLOTS NOTED. PERICARE DONE. TOWELS, CHUX, AND PERIPADS CHANGED. SPRITE PROVIDED PER PT REQUEST. DENIES ADDITIONAL NEEDS. BED IN LOW POSITION WITH SRUP X2. CALL LIGHT AND PHONE WITHIN REACH. WILL CONTINUE TO MONITOR.
--- NOTE | 2019-08-05 15:17 | NUR ---
ELLE CREW TO BEDSIDE WITH FOR PT TO SEE. PAIN REASSESSMENT COMPLETED, PAIN REMAINS 3/10, STATES THAT SHE HAS NOT USED CEO AND FOUNDER AND DENIES NEED FOR INTERVENTION.
--- NOTE | 2019-08-05 15:38 | NUR ---
ELLE CREW OUT OF ROOM WITH FOR TRANSPORT. VSS. FUNDUS REMAINS FIRM, MIDLINE AND U2 WITH SMALL RUBRA LOCHIA, NO CLOTS NOTED. DENIES NEEDS. CONVERSING WITH VISITORS. BED IN LOW POSITION WITH SRUP X2. CALL LIGHT AND PHONE WITHIN REACH. WILL CONTINUE TO MONITOR.
--- NOTE | 2019-08-05 16:58 | NUR ---
DR. ALMEIDA ON UNIT. ORDERS REC'D.
--- NOTE | 2019-08-05 18:38 | NUR ---
TORADOL GIVEN PER ORDER. C/O ABD AND INCISIONAL DISCOMFORT 12/18. CONTINUES TO STATE THAT SHE HAS NOT USED MONITOR TECH, STATES THAT SHE IS REALLY TRYING NOT USE MONITOR TECH D/T MORPHINE CAUSING A HEADACHE. STATES THAT SHE WANTS TO TRY TORADOL FIRST AND IF IT DOES NOT WORK SHE WOULD LIKE TO TRY PO MEDS INSTEAD OF IV PAIN MEDS. VSS. FUNDUS REMAINS FIRM, MIDLINE AND U2 WITH SMALL AMT RUBRA LOCHIA, NO CLOTS NOTED. PERICARE DONE, PERIPADS, TOWELS, AND CHUX CHANGE. ABRAMS CARE DONE, 300 MLS CLEAR LIGHT YELLOW URINE EMPTIED FROM ABRAMS. INCENTIVE SPIROMETER DONE X5, COUGH AND DEEP BREATHING DONE WITH GOOD EFFORT. DRSG REMAINS CLEAN DRY AND INTACT. NEW ICE PACK PROVIDED. NO NEW AREAS OF DRAINAGE NOTED TO LOWER TRANSVERSE ABD DRSG. BED IN LOW POSITION WITH SRUP X2. CALL LIGHT AND PHONE WITHIN REACH. LIGHTS OFF PER PT REQUEST.
--- NOTE | 2019-08-05 20:00 | NUR ---
PATIENT LYING IN BED WITH HOB UP 45 DEGREES, IV PATIENT IN LEFT WRIST, INFUSING PITOCIN AT 125/HR [employer] MORPHINE AVAILABLE BUT PATIENT STATES IT GIVES HER HEADACHES SO HAS NOT USED. 2ND IV ACCESS SALINE LOCK IN RIGHT WRIST. ABRAMS TO BEDSIDE DRAINING CLEAR YELLOW URINE. SCD'S ON, LTV ABDOMINAL PRESSURE DRESSING ON NO NEW DRAINAGE NOTED. FUNDUS FIRM, ML,AT U, LOCHIA SMALL RUBRA, LEOPOLDO CARE COMPLETED
--- NOTE | 2019-08-05 20:50 | NUR ---
PO PERCOCET GIVEN FOR PAIN, PATIENT NOT USING MORPHINE JIG MAKER STATES MORPHINE GIVES HER HEADACHES
--- NOTE | 2019-08-05 22:10 | NUR ---
TOLERATING FLUIDS WELL, CHICKEN BROTH GIVEN, DR ALMEIDA STATED COULD ADVANCE DIET TOLERATED.
--- NOTE | 2019-08-05 23:20 | NUR ---
PEANUT BUTTER AND AHMET CRACKERS GIVEN FOR SNACK, TOLERATING WELL
--- NOTE | 2019-08-06 00:15 | NUR ---
ABRAMS DISCONTINUED, EMPTIEN 450 ML CLEAR YELLOW URINE, LEOPOLDO CARE, IV SALINE LOCKED, NO REDNESS, NO TENDERNESS NOTED, PATIENT UP AND AMBULATED IN ROOM. UP TO CHAIR, TOLERATED WELL
--- NOTE | 2019-08-06 00:50 | NUR ---
UP TO BATHROOM, VOIDED 300 ML LEOPOLDO CARE, AND RETURNED TO BED WITH SCD'S ON, CALL LIGHT IN REACH, SR UP X2 AND FAMILY MEMBER IS AT BEDSIDE
--- NOTE | 2019-08-06 00:56 | NUR ---
PERCOCET 10MG TAB PO FOR C/O INCISIONAL PAIN NOT RELEAVED BY TORADOL
--- NOTE | 2019-08-06 02:00 | NUR ---
RESTING WITH EYES CLOSED, SR UP X 2 CALL LIGHT IN REACH
--- NOTE | 2019-08-06 03:03 | NUR ---
SLEEPING, FAMILY AT BEDSIDE, CALL LIGHT IN REACH SR UP X2
[2019-08-06 04:13] VITALS: BP 104/55
--- NOTE | 2019-08-06 04:15 | NUR ---
VS STABLE, DENIES NEEDS, COMFORTABLE AND DENIES NEED FOR MEDICATION. CALL LIGHT IN REACH SR UP X2
--- NOTE | 2019-08-06 05:10 | NUR ---
sleeping, SR up x2 call light in reach, fa,nestor at bedside
[2019-08-06 06:09] LABS: RAPID PLASMA REAGIN Non Reactive (Non Reactive)
--- NOTE | 2019-08-06 06:22 | NUR ---
teaching on po toradol and percocet for pain. up to bathroom, moving well, denies needs
[2019-08-06 07:11] VITALS: BP 105/60
--- NOTE | 2019-08-06 07:11 | NUR ---
BEDSIDE REPORT REC'D FROM Cruz ARDON RN. PT REC'D LAYING IN SEMI-FOWLERS POSITION AA&O X4 CONVERSING WITH HER MOTHER. SHIFT ASSESSMENT COMPLETED AT THIS TIME. VSS. FUNDUS FIRM, MIDLINE AND U2 WITH SCANT RUBRA LOCHIA, NO CLOTS NOTED. REPORTS THAT SHE IS PASSING FLATUS AND VOIDING WITHOUT DIFFICULTY. BREATH SOUNDS CLEAR AND EQUAL BILATERAL, RESP REGULAR AND UNLABORED, NO S/S OF DISTRESS NOTED. BOWEL SOUNDS PRESENT AND ACTIVE X4. SCDS ON BLE. L WRIST AND R FA PIV, BOTH SL AND FLUSH WITHOUT DIFFICULTY. NO S/S OF INFILTRATION NOTED. LOWER TRANSVERSE ABD INCISION REMAINS COVERED WITH DRSG, NO NEW DRAINAGE NOTED FROM AREAS PREVIOUSLY MARKED BY THIS RN ON HER PREVIOUS SHIFT. POC DISCUSSED WITH PT AND ENCOURAGED AMBULATION OUTSIDE OF ROOM, VERBALIZES UNDERSTANDING. DISCUSSED NOVALOG AND EXPLAINED THAT MED WOULD BE ADMINISTERED WHEN BREAKFAST TRAY ARRIVES, VERBALIZES UNDERSTANDING. REPORTS THAT SHE HAS BEEN WATCHING ON LIVE FEED, DENIES NEEDS AT THIS TIME. BED IN LOW POSITION WITH SRUP X2. CALL LIGHT AND PHONE WITHIN REACH. WILL CONTINUE TO MONITOR.
--- NOTE | 2019-08-06 07:34 | NUR ---
BREAKFAST TRAY TO ROOM. 10 UNIT NOVALOG GIVEN PER ORDER. DR. ALMEIDA AT BEDSIDE. LOWER TRANSVERSE ABD INCISION DRSG REMOVED PER DR. ALMEIDA. INCISION WELL APPROXIMATED, GLUE INTACT. NO DRAINAGE NOTED. PERIPAD PLACED OVER INCISION AND PT INSTRUCTED ON INCISIONAL CARE, VERBALIZES UNDERSTANDING. DENIES NEEDS. BED IN LOW POSITION WITH SRUP X2. CALL LIGHT AND PHONE WITHIN REACH. WILL CONTINUE TO MONITOR.
[2019-08-06 07:47] LABS: BASOPHILS 0.1 % (0-2); EOSINOPHILS 1.5 % (0-7); HEMATOCRIT 32.5 % (36.0-48.0); HEMOGLOBIN 10.3 g/dL (12-16); IMMATURE GRANULOCYTES 0.4 % (0-5); LYMPHOCYTES 12.7 % (15-50); MCH 27.6 pg (26.0-34.0); MCHC 31.7 g/dL (31.0-37.0); MCV 87.1 fL (80.0-100.0); MEAN PLATELET VOLUME 10.6 fL (7.4-10.4); MONOCYTES 5.7 % (2-11); NEUTROPHILS 79.6 % (40-80); PLATELET COUNT 155 10x3/uL (130-400); RBC 3.73 10x6/uL (4.00-5.40); RDW 14.9 % (11.5-14.5)
[2019-08-06 07:49] LABS: WBC 7.4 10x3/uL (4.8-10.8)
--- NOTE | 2019-08-06 08:46 | NUR ---
SITTING ON EDGE OF BED CONVERSING WITH VISITORS AND CHILDREN. DENIES NEEDS AND PAIN AT THIS TIME. BED IN LOW POSITION WITH SRUP X2. CALL LIGHT AND PHONE WITHIN REACH.
--- NOTE | 2019-08-06 10:00 | NUR ---
AMBULATORY TO ROOM 1221 FOR CONTINUED PP CARE. STEADY GAIT NOTED. ORIENTED TO ROOM, VERBALIZES UNDERSTANDING AND DENIES NEEDS AT THIS TIME.
--- NOTE | 2019-08-06 10:15 | NUR ---
PT AMBULATORY IN ROOM. ORIENTED TO ROOM, BED, AND CALL LIGHT. DENIES NEEDS AT THIS TIME.
[2019-08-06 11:15] VITALS: BP 109/56
--- NOTE | 2019-08-06 11:15 | NUR ---
PT AMBULATORY IN ROOM. SITS UP ON SIDE OF BED FOR VS. VSS. REQUESTS AND RECEIVES LINEN AND TOILETRIES FOR SHOWER.
--- NOTE | 2019-08-06 12:28 | NUR ---
SCHEDULED INSULIN GIVEN SQ TO LEFT OUTER ARM WITH Shayan MUÑOZ RN WITNESS. PT ALSO GIVEN TORADOL 10 MG PO ORDERED. PT ALSO C/O PAIN AND REQUESTS AND RECEIVES NEURONTIN 300 MG PO ORDERED. PT INSTRUCTED ON ALL MEDS. VERBALIZES UNDERSTANDING.
--- NOTE | 2019-08-06 13:20 | NUR ---
PT SITTING UP IN BED. TALKING ON PHONE. STATES PAIN IS THE SAME WHEN TOOK PAIN MEDS. PT DECLINES FURTHER MEDICATION. STATES "I DON'T LIKE TAKING A LOT OF MEDICINE AT ONCE". INSTRUCTED TO NOTIFY NURSE IF NEEDS SOMETHING FOR PAIN. VERBALIZES UNDERSTANDING.
--- NOTE | 2019-08-06 13:30 | NUR ---
PT SITTING UP IN BED. CONSUMING FOOD BROUGHT IN BY FAMILY. STATES DID NOT EAT MUCH OF TRAY BROUGHT BY DIETARY.
--- NOTE | 2019-08-06 15:35 | NUR ---
2 HOUR PP FSBS 196. PT STATES ATE POPEYES FOR LUNCH. STATES "IT SHOULD BE HIGH BECAUSE OF WHAT I ATE". STATES "I DON'T NORMALLY EAT LIKE THAT".
--- NOTE | 2019-08-06 15:52 | NUR ---
DR LINK ON UNIT. NOTIFIED OF FSBS. NO NEW ORDERS.
--- NOTE | 2019-08-06 16:59 | NUR ---
PT C/O INCISIONAL PAIN/CRAMPING OF "6" ON 0-10 PAIN SCALE. PERCOCET 10/325 GIVEN PO ORDERED. PT INSTRUCTED ON MED. VERBALIZES UNDERSTANDING. SL TO RIGHT WRIST DC'D WITH CATHELON INTACT. PRESSURE BANDAGE TO SITE. SL TO LEFT WRIST FLUSHED WITH 10 ML NS. SITE CLEAR.
[2019-08-06 20:00] VITALS: BP 102/57
--- NOTE | 2019-08-06 20:00 | NUR ---
REPORT GIVEN BY FABRICIO DALTON AT 1915. PT IS DOING WELL WITH NO C/O. hEART SOUNDS WNL, LUNGS CLEAR, BOWEL SOUNDS HEARD. PT IS UP AD FABI IN HER ROOM. LOCHIA IS SMALL. PT IS A DIABETIC ON INSULIN. SKIN IS WARM AND DRY. SHE IS VOIDING WELL. SHE HAS A SALINE LOCK IN HER LEFT HAND. HER MOM IS AT BEDSIDE. FUNDUS FIRM. PT HAS BEEN INSTRUCTED TO CALL IF SHE HAS ANY NEEDS.
[2019-08-07] VITALS: BP 107/63
--- NOTE | 2019-08-07 | NUR ---
PT IS FEELING BETTER. STILL UP WATCHING TV.
--- NOTE | 2019-08-07 02:00 | NUR ---
PT RESTING QUIETLY. NO C/O. MOM STILL IN ROOM AND PT DAUGHTER IS IN THE ROOM.
--- NOTE | 2019-08-07 04:00 | NUR ---
PT BP WAS NOT TAKEN AT 0400. PT, HER MOTHER AND A CHILD WERE SLEEPING SOUNDLY IN THE ROOM AND I COULD NOT GET THE MACHINE IN TO TAKE VS
--- NOTE | 2019-08-07 06:00 | NUR ---
PT AWAKE AND ALERT. NO C/O AT THIS TIME.
--- NOTE | 2019-08-07 07:52 | NUR ---
PT SERVED LARGE MUG OF ICE WATER. PT WILL NOW EAT RGULAR BREAKFAST SERVED BY DIETARY. SEE EMAR FOR ALL MEDS ADM BY THIS RN.
[2019-08-07 08:30] VITALS: BP 119/75
--- NOTE | 2019-08-07 08:30 | NUR ---
AM ASSESSMENT COMPLETED, SEE FLOWSHEET.
--- NOTE | 2019-08-07 09:06 | NUR ---
PT AMBULATORY IN HALLWAY, DISCHARGE PLANNING DISCUSSED WITH PT. WILL ADM PAIN MEDS UPON PT RETURNING TO ROOM.
--- NOTE | 2019-08-07 09:20 | NUR ---
DISCHARGE INSTRUCTIONS EXPLAINED TO PT, COPIES OFF ALL D/C INSTRUCTIONS PROVIDED, ALONG WITH APPT CARD AND PRESCRIPTION. PT DENIES ALL QUESTIONS. SL TO LEFT WRIST DC'D WITH CATH INTACT.
[2019-08-07] MEDS ORDERED: PERCOCET 5-3251 TAB PO (09:27)
--- NOTE | 2019-08-07 09:45 | NUR ---
PT STATES SHE WANTS TO WALK OUT AND NOT TAKE WHEELCHAIR. PT OFF UNIT IN STABLE CONDITION WITH FAMILY MEMBERS.
== END 2019-08-07 09:45 | disposition home or self-care (01) | DRG 786 ==
LOC: D.LD 10:31 → D.WS 10:31
PROVIDERS: ADMIT Student in an Organized Health Care Education/Training Program; ATTEND Student in an Organized Health Care Education/Training Program
PROC: 10D00Z1 Extraction of Products of Conception, Low, Open Approach (ICD-10-PCS; principal; 2019-08-05 11:00)
DX: O76 Abnormality in fetal heart rate and rhythm complicating labor and delivery (principal); O24.12 Pre-existing type 2 diabetes mellitus, in childbirth; O99.824 Streptococcus B carrier state complicating childbirth; Z3A.37 37 weeks gestation of pregnancy; Z37.0 Single live birth; E11.9 Type 2 diabetes mellitus without complications; Z79.4 Long term (current) use of insulin